=== PATIENT | male | born 1960 | race Caucasian/White ===

== ENCOUNTER → 2024-06-18 22:00 | Outpatient (REF) | payer OTHER, SELFPAY | LOC: DHSLP 22:00 | PROVIDERS: ATTENDING PHYSICIAN Internal Medicine Cardiovascular Disease; FAMILY PHYSICIAN Family Medicine | DX: G47.33 Obstructive sleep apnea (adult) (pediatric) (principal) | CPT/HCPCS: 95800 ==

== ENCOUNTER → 2024-09-06 08:20 | Outpatient (REF) | payer MEDICARE, SELFPAY | LOC: MRI 3T 08:20 | PROVIDERS: ATTENDING PHYSICIAN Specialist; FAMILY PHYSICIAN Family Medicine | DX: M25.561 Pain in right knee (principal) | CPT/HCPCS: 73721 ==

== ENCOUNTER → 2024-09-21 06:48 | Outpatient (REF) | payer MEDICARE, SELFPAY ==
[2024-09-21 08:24] LABS: % Basophils 0.3 % (0-2); % Eosinophils 0.7 % (0-6); % Immature Granulocytes 0.3 % (0-0.5); % Lymphocytes 42.8 % (20.5-51.1); % Monocytes 8.9 % (1.7-9.3); Absolute Lymphocytes 2.6 10^3/uL (1.2-3.4); Absolute Monocytes 0.5 10^3/uL (0.1-0.6); Absolute Neutrophils 2.9 10^3/uL (1.4-6.5); Hematocrit 45.5 % (39.0-52.0); Mean Corp Hgb Conc. 35.2 g/dL (33.0-37.0); Mean Corpuscular Hgb 29.8 pg (27.0-31.0); Mean Corpuscular Volume 84.7 fL (80.0-94.0); Mean Platelet Volume 9.6 fL (7.4-10.4); Nucleated Red Blood Cells % 0 % (-); Platelet Count 144 10^3/uL (130-400); Red Blood Cell Count 5.37 10^6/uL (4.70-6.10); White Blood Cell Count 6.1 10^3/uL (4.8-10.8)
[2024-09-21 12:51] LABS: Blood Urea Nitrogen 18 mg/dl (9-20); Calcium 9.8 mg/dl (8.4-10.2); Carbon Dioxide 30 mmol/L (22-30); Chloride 104 mmol/L (98-107); Glucose 106 mg/dl (70-99); Potassium 4.6 mmol/L (3.5-5.1); Sodium 144 mmol/L (135-145); eGFR > 60.00
== END ==
LOC: REG 06:48
PROVIDERS: ATTENDING PHYSICIAN Specialist; FAMILY PHYSICIAN Family Medicine
DX: Z01.818 Encounter for other preprocedural examination (principal)
CPT/HCPCS: 36415; 80048; 85025

== ENCOUNTER 2024-10-16 00:17 | Emergency (ER) | payer MEDICARE, SELFPAY ==
[2024-10-16 00:20] VITALS: BP 158/93
--- NOTE | 2024-10-16 01:34 | ED.GENMED ---
History of Present Illness
General
Chief Complaint: Skin Surface Trauma
Time Seen by Provider: 10/16/24 01:24
History of Present Illness
History of Present Illness:
Patient is a 64-year-old male with history of A-fib on Xarelto presenting to the emergency department with a lip laceration. Patient states that he was removing the plastic part of a mop when he pulled it and hit his lip. He believes his upper
teeth went into the lip. He tried putting pressure to control the bleeding however it would not stop. He then came to the emergency department for further evaluation. He denies any lightheadedness dizziness. No problems with his teeth. He did
not fall or hit his head. He does believe that the bleeding has stopped now.
Phy Exam
Physical Exam
Physical Exam:
GENERAL: in no acute distress
HEENT: normocephalic, extraocular movements intact, moist oral mucosa, small superficial lip laceration to the middle lower lip with bleeding controlled, dried blood to the chin, dentition intact, no intraoral injuries, no involvement of the
darryl border
NECK: normal inspection
RESPIRATORY: no respiratory distress
CARDIOVASCULAR: regular rate and rhythm
NEUROLOGIC: awake and alert, moves all extremities
SKIN: warm
Course
Vital Signs
Initial and Last Documented VS:
Initial Vital Signs
Temp Pulse Resp BP Pulse Ox
98.7 F 73 18 158/93 100
10/16/24 00:20 10/16/24 00:20 10/16/24 00:20 10/16/24 00:20 10/16/24 00:20
Last Documented Vital Signs
Temp Pulse Resp BP Pulse Ox
98.7 F 73 18 158/93 100
10/16/24 00:20 10/16/24 00:20 10/16/24 00:20 10/16/24 00:20 10/16/24 00:20
MDM/Problems Addressed
Differential Diagnosis Includes:
Patient is a 64-year-old male with history of A-fib on Xarelto presenting to the emergency department with concerns for lip laceration after accidentally hitting himself in the face With a plastic container. On arrival vitals were notable for
slight hypertension at 158/93. During my evaluation patient had about 1 cm superficial lip laceration/almost skin tear of the lip after it looks like his teeth dug into the lip. Bleeding has been well-controlled with direct pressure. There were
no other lesions. Patient advised to place petroleum dressing. The laceration is so small that there is no role for suture. We did discuss direct pressure and how to help the bleeding if it were to recur at home. Will give patient gauze as a
mental reminder as he does state that he has a habit of licking his lip. Consider obtaining blood work to evaluate hemoglobin however minimal bleeding and patient is asymptomatic so we will hold off at this time. Will discharge at this time with
strict return precautions given.
*Critical Care Note
Total Time (30-74mins, 75-104mins- exclusive of procedures): Not Applicable
ED Attending Note
-
Portions of this chart may have been created with voice recognition software.� Occasional wrong word or��sound alike� substitutions may have occurred due to the inherent limitations of voice recognition software.
Discharge Plan
Departure
Patient Disposition: Home (Routine Discharge)
Date of Disposition: 10/16/24
Time of Disposition: 01:34
Patient with high blood pressure during this ER visit?: No
Discharge Problem:
Laceration of lip
Instructions: Wound Care (DC)
Referrals:
Shanae Magana, [Family Provider] -
Interventions
Interventions:
*Risk Screen - Suicide Last Done: 10/16/24 00:20
*Nursing Disposition Last Done: 10/16/24 01:41
ED-Skin Assessment Last Done: 10/16/24 00:30
Discharge Date and Time
Discharge Date/Time: 10/16/24 01:41
Print Language: SLOV[place]
== END 2024-10-16 01:41 | disposition home or self-care (01) ==
LOC: EMR 00:17
PROVIDERS: EMERGENCY PHYSICIAN Student in an Organized Health Care Education/Training Program; FAMILY PHYSICIAN Family Medicine
DX: S01.511A Laceration without foreign body of lip, initial encounter (principal); W22.8XXA Striking against or struck by other objects, initial encounter; I48.91 Unspecified atrial fibrillation; Z79.01 Long term (current) use of anticoagulants
CPT/HCPCS: 99282